=== PATIENT | female | born 1990 | race Caucasian/White ===

== ENCOUNTER 2017-10-08 19:47 | Emergency (ER) | payer SELFPAY ==
--- NOTE | 2017-10-08 20:11 | UC ---
Skin Complaint HPI - HPI Summary HPI Summary: Severe menstrual bleeding she has been using one pad an hour she reports for the past 48 hours. Today she noticed large bruises on her arms her legs and a petechial rash on both lower extremities. Patient denies any injuries, she denies domestic violence, she denies any episodes similar to this in the past - History of Current Complaint Chief Complaint: [facility] Time Seen by Provider: 10/08/17 20:03 Stated Complaint: BRUISES ON BODY/PERSONAL Hx Obtained From: Patient Hx Last Menstrual Period: now-DUB ?: No Onset/Duration: Sudden Onset, Lasting Days - 2, Still Present Timing: Constant Location: Diffuse Associated Signs & Symptoms: Positive: Bruising - Allergy/Home Medications Allergies/Adverse Reactions: Allergies Allergy/AdvReac Type Severity Reaction Status Date / Time amoxicillin Allergy Rash Verified 10/08/17 20:15 Penicillins Allergy Rash Verified 10/08/17 20:15 Home Medications: Home Medications Naproxen Sodium [Midol] 1 each PO DAILY 10/08/17 [History Confirmed 10/08/17] Review of Systems Constitutional: Negative Skin: Rash, Bruising Eyes: Negative ENT: Negative Respiratory: Negative Cardiovascular: Negative Gastrointestinal: Negative Genitourinary: Negative, Other - 48 hours of 1 pad per hour bleeding Motor: Negative Neurovascular: Negative Musculoskeletal: Negative Neurological: Other - "just does not feel right" Psychological: Negative Is Patient Immunocompromised?: No All Other Systems Reviewed And Are Negative: Yes PMH/Surg Hx/FS Hx/Imm Hx Previously Healthy: No - Family History Known Family History: Positive: Cardiac Disease, Diabetes - Social History Occupation: Employed Part-time Lives: With Family Alcohol Use: None Substance Use Type: None Smoking Status (MU): Never Smoked Tobacco Physical Exam Triage Information Reviewed: Yes Appearance: No Pain Distress, Well-Nourished, Ill-Appearing - pale Vital Signs Reviewed: Yes Eye Exam: Normal Eyes: Positive: Conjunctiva Clear ENT Exam: Normal ENT: Positive: Normal ENT inspection, Hearing grossly normal, Pharynx normal. Negative: Trismus, Muffled voice, Hoarse voice Dental Exam: Normal Neck exam: Normal Neck: Positive: Supple, Nontender, No Lymphadenopathy Respiratory Exam: Normal Respiratory: Positive: Chest non-tender, Lungs clear, Normal breath sounds, No respiratory distress, No accessory muscle use Cardiovascular Exam: Other Cardiovascular: Positive: No Murmur, Pulses Normal, Brisk Capillary Refill, Tachycardia, Other: - pale Musculoskeletal Exam: Normal Musculoskeletal: Positive: Strength Intact, ROM Intact, No Edema Neurological Exam: Normal Neurological: Positive: Alert, Muscle Tone Normal, Fatigued Psychological Exam: Normal Psychological: Positive: Normal Response To Family, Age Appropriate Behavior Skin Exam: Other Skin: Positive: Other - multiple bruised areas Course/Dx - Course Course Of Treatment: transfer patient to [facility] Emergency Department for further assessment---partner will be driving her - Diagnoses Provider Diagnoses: Dysfunctional uterine bleeding, tachycardia - Physician Notification/Consults Discussed Patient Care With: Geovany Almaguer MD Time Discussed With Above Provider: 20:30 Instructed by Provider To: Transfer Discharge - Sign-Out/Discharge Documenting (check all that apply): Discharge/Admit/Transfer - Discharge Plan Condition: Stable Disposition: HOME Discharge Disposition Comment: [facility] Emergency Department Patient Education Materials: Dysfunctional Uterine Bleeding (ED), Contusion in Adults (ED) Referrals: Care [facility] [Outside] - If Needed [facility] [place]Outside] - If Needed [facility] [Medical Doctor] - As Soon As Possible - Billing Disposition and Condition Condition: STABLE Disposition: Home
[2017-10-08 20:14] VITALS: BP 144/81
== END 2017-10-08 20:27 | disposition home or self-care (01) ==
LOC: UCCORT 19:47
DX: N93.8 Other specified abnormal uterine and vaginal bleeding (principal); R00.0 Tachycardia, unspecified; S40.022A Contusion of left upper arm, initial encounter; S40.021A Contusion of right upper arm, initial encounter; S80.12XA Contusion of left lower leg, initial encounter; S80.11XA Contusion of right lower leg, initial encounter; Z88.0 Allergy status to penicillin; X58.XXXA Exposure to other specified factors, initial encounter; Y92.9 Unspecified place or not applicable; R21 Rash and other nonspecific skin eruption
CPT/HCPCS: 99202; G0463

== ENCOUNTER 2018-09-20 20:54 | Emergency (ER) | payer BC ==
--- OUTSIDE RECORDS SUMMARY | 2018-09-20 21:03 | XMS REPORT | Continuity of Care Document ---
:1990 External Reference #:[id number] Author Name Shameka Duffy Care Team Providers Name Role Phone Elisha Carter DO Care Team Information Pvc Monitor Unavailable Magy Boggs MD Primary Care Physician Unavailable Payers Date Identification Numbers Payment Provider Subscriber Expires: 2017 Policy Number: [id number] Jacqueline Kaur PayID: [id number] [address] [address] [place] [address] Policy Number: [id number] Jacqueline Kaur PayID: [id number] [address] [address] [place] [address] Problems Active Problems Provider Date Idiopathic thrombocytopenic purpura Elisha Carter DO Onset: 10/17/2017 Vitamin D deficiency Elisha Carter DO Onset: 10/17/2017 Irregular menstruation, unspecified Elisha Carter DO Onset: 10/17/2017 Disorder of menstruation Briana Bedoya CNM Onset: 10/25/2017 Thrombocytopenic disorder Briana Bedoya CNM Onset: 10/25/2017 Contraception care Briana Bedoya CNM Onset: 12/26/2017 Vitamin B deficiency Elisha Carter DO Onset: 11/25/2017 Iron deficiency Elisha Carter DO Onset: 11/25/2017 Splenomegaly Elisha Carter DO Onset: 11/25/2017 Obesity Magy Boggs MD Onset: 03/07/2018 Family History Date Family Member(s) Observation Comments Onset: (age 28 Years) Mother Cervical Cancer Social History Type Date Description Comments Sex Unknown Marital Status Single Occupation Sk[employer] Work Status Currently Working Tobacco Use Start: Unknown Never Smoked Cigarettes Smoking Status Reviewed: 09/13/18 Never Smoked Cigarettes ETOH Use Denies alcohol use Tobacco Use Start: Unknown Patient denies history of smoking Recreational Drug Use Denies Drug Use Contraceptive Methods none # [facility] 1 Allergies, Adverse Reactions, Alerts Active Allergies Reaction Severity Comments Date Penicillin Hives 10/17/2017 Azithromycin Hives 10/17/2017 Ciprofloxacin Hives 10/17/2017 Medications Active Medications SIG Qnty Indications Ordering Provider Date Ergocalciferol 1 cap po q 3caps Elisha Carter, 08/21/2018 [id number] week DO Capsules Folic Acid 1 tabl by 30tabs Elisha Carter, 05/10/2018 1mg Tablets mouth every DO day Iron 1 tabl po 30tabs Elisha Carter, 03/13/2018 325(65Fe) mg Tablets daily with vit DO C Vitamin C 1 tabl po 30units Elisha Carter, 03/13/2018 500mg [place] daily with DO iron Sprintec 28 1 by mouth 84tabs JulianBriana, [facility] 12/26/2017 0.25-35mg-mcg every day Tablets History Medications Ergocalciferol 1 cap po q week 8caps [facility], 03/07/2018 - [id number] Capsules Elisha, DO 09/13/2018 No Active Medications Unknown 12/26/2017 - 12/26/2017 Sprintec 28 Take 1 tablet 1pack N93.9 Julianra Briana, 10/25/2017 - 0.25-35mg-mcg Tablets by mouth daily [facility] 12/26/2017 Ergocalciferol 1 cap po q week 8caps [facility], 10/17/2017 - [id number] Capsules Elisha, DO 10/25/2017 Pred[facility]one 2 tabl po q day [facility] 10/17/2017 - 2.5mg Tablets from 11/02 to 11/04 Elisha, DO 12/26/2017 1 tabl po q day from 11/05 Pantoprazole Sodium 1 by mouth Unknown - 40mg Tablets every day every 12/26/2017 DR morning Medroxyprogesterone take 1 tablet Unknown - Acetate by mouth daily 12/26/2017 10mg Tablets for 10 days with food for abnormal bleeding from the uterus Ferrous Sulfate take one tablet Unknown - 325(65Fe) mg by mouth twice 12/26/2017 Tablets a day Cephalexin 1 tab (or cap) Unknown - 500mg Tablets by mouth three 10/25/2017 times a day Medications Administered in Office Medication SIG Qnty Indications Ordering Provider Date Vitamin B12 Injection 1000 Oncology Nurse 09/07/2018 mcg/Ml Injection Vitamin B12 Injection 1000 Elisha Carter, DO 07/07/2018 mcg/Ml Injection Vitamin B12 Injection 1000 Elisha Carter, DO 05/10/2018 mcg/Ml Injection Vitamin B12 Injection 1000 Elisha Carter, DO 03/13/2018 mcg/Ml Injection Vital Signs Date Vital Result Comment 09/13/2018 8:44am BP Systolic Sitting Left Arm 118 mmHg BP Diastolic Sitting Left Arm 78 mmHg Body Temperature 98.3 F Heart Rate 88 /min Respiratory Rate 18 /min Height 70 inches 5'10" Weight 283.00 lb BMI (Body Mass Index) 40.6 kg/m2 BSA (Body Surface Area) 2.42 m2 [place] body weight in kilograms 68 kg O2 % BldC Oximetry 96 % Ra 08/21/2018 2:01pm BP Systolic 145 mmHg BP Diastolic 81 mmHg Body Temperature 98.6 F Heart Rate 91 /min Respiratory Rate 16 /min Weight 281.38 lb O2 % BldC Oximetry 97 % Pain Level 0 07/07/2018 2:43pm BP Systolic 146 mmHg BP Diastolic 80 mmHg Body Temperature 98.4 F Heart Rate 91 /min Respiratory Rate 16 /min Weight 282.12 lb O2 % BldC Oximetry 96 % Pain Level 0 06/13/2018 8:46am BP Systolic Sitting Left Arm 124 mmHg BP Diastolic Sitting Left Arm 76 mmHg Body Temperature 98.6 F Heart Rate 82 /min Respiratory Rate 16 /min Height 70 inches 5'10" Weight 280.00 lb BMI (Body Mass Index) 40.2 kg/m2 BSA (Body Surface Area) 2.41 m2 [place] body weight in kilograms 68 kg O2 % BldC Oximetry 99 % Ra 05/10/2018 3:41pm BP Systolic 150 mmHg BP Diastolic 81 mmHg Body Temperature 98.2 F Heart Rate 104 /min Respiratory Rate 18 /min Weight 279.00 lb O2 % BldC Oximetry 99 % Pain Level 0 03/13/2018 10:18am BP Systolic 131 mmHg BP Diastolic 78 mmHg Body Temperature 98.6 F Heart Rate 80 /min Respiratory Rate 16 /min Weight 273.50 lb O2 % BldC Oximetry 100 % Pain Level 0 03/07/2018 8:44am BP Systolic 132 mmHg BP Diastolic 73 mmHg Body Temperature 97.7 F Heart Rate 76 /min Respiratory Rate 18 /min Height 70.5 inches 5'10.50" Weight 275.50 lb BMI (Body Mass Index) 39.0 kg/m2 BSA (Body Surface Area) 2.40 m2 [place] body weight in kilograms 69 kg O2 % BldC Oximetry 100 % 01/27/2018 10:22am BP Systolic 133 mmHg BP Diastolic 73 mmHg Body Temperature 98.0 F Heart Rate 92 /min Weight 272.00 lb O2 % BldC Oximetry 100 % 12/26/2017 10:03am BP Systolic 119 mmHg BP Diastolic 74 mmHg Body Temperature 98.1 F Heart Rate 89 /min Respiratory Rate 18 /min Height 70 inches 5'10" Weight 276.00 lb BMI (Body Mass Index) 39.6 kg/m2 BSA (Body Surface Area) 2.39 m2 [place] body weight in kilograms 68 kg O2 % BldC Oximetry 99 % 11/25/2017 8:57am BP Systolic 122 mmHg BP Diastolic 75 mmHg Body Temperature 98.5 F Heart Rate 83 /min Weight 276.25 lb O2 % BldC Oximetry 99 % Pain Level 0 10/25/2017 9:00am BP Systolic 132 mmHg BP Diastolic 75 mmHg Body Temperature 97.8 F Heart Rate 98 /min Respiratory Rate 18 /min Height 70 inches 5'10" Weight 273.00 lb BMI (Body Mass Index) 39.2 kg/m2 BSA (Body Surface Area) 2.38 m2 [place] body weight in kilograms 68 kg O2 % BldC Oximetry 99 % 10/17/2017 12:24pm BP Systolic 126 mmHg BP Diastolic 70 mmHg Body Temperature 98.6 F Heart Rate 76 /min Respiratory Rate 16 /min Weight 274.00 lb O2 % BldC Oximetry 98 % Results Test Date Facility Test Result H/L Range Note CBC 09/11/2018 [facility] White Blood 6.7 K/uL N 3.1-10.7 1 W/Automated [address] Count Diff [place], [place] [id number] [phone] Red Blood Count 4.83 M/uL N 3.90-5.40 Hemoglobin 14.8 gm/dL N 11.6-15.8 Hematocrit 43.1 % N 36.0-46.1 Mean Cell Volume 89.2 fl N 80.9-99.0 Mean Corpuscular HGB 30.6 pg N 25.9-32.7 Mean Corpuscular HGB Conc 34.3 g/dL N 30.8-34.3 Platelet Count 248 K/uL N 155-360 Red Cell Distri Width SD 44.4 fl N 36-47 Red Cell Distri Width %CV 13.7 % N 11.7-14.4 Mean Platelet Volume 10.5 fl N 8.9-12.4 Neut% 58.4 % N 40.4-72.8 Lymph % 28.9 % N 20.0-42.0 [place] % 8.8 % N 4.3-13.2 Eo% 2.8 % N 0.0-6.6 Bas% 0.7 % N 0.0-1.1 Immature Grans 0.4 % N 0.0-5.0 NRBC % 0.0 /100WBC < 10/ 100 WBC Neut# 3.89 K/uL N 1.8-7.0 Lymph # 1.93 K/uL N 1.0-4.0 [place] # 0.59 K/uL N 0.3-0.9 Eos # 0.19 K/uL N 0.0-0.5 Baso # 0.05 K/uL N 0.0-0.1 Immature Grans Absolute 0.03 K/uL NRBC # 0.00 K/uL Vitamin B12 And 09/11/2018 [facility] Vitamin B12 657 pg/mL N 193-986 Folate [address] [place] [address] [phone] Folic Acid 19.5 ng/mL High 3.1-17.5 Comprehensive Metabolic 09/11/2018 [facility] Glucose 92 mg/dL N 74-106 Panel [address] [place] [address] [phone] BUN 12 mg/dL N 7-18 Creatinine 0.8 mg/dL N 0.6-1.3 Glom Filtration Rate, Estimate >60 mL/min >60 If >60 mL/min >60 2 BUN/Creat 15.0 ratio Sodium 138 mmol/L N 136-145 Potassium 4.2 mmol/L N 3.5-5.1 Chloride 105 mmol/L N 98-107 Carbon Dioxide 25 mmol/L N 21-32 Anion Gap 8 mEq/L N 8-16 Calcium 8.7 mg/dL N 8.5-10.1 Total Protein 7.5 g/dL N 6.4-8.2 Albumin 4.0 g/dL N 3.4-5.0 Globulin 3.5 g/dL N 1.9-4.3 Alb/Glob 1.1 ratio Bilirubin,Total 0.3 mg/dL N 0.2-1.0 Sgot/Ast 18 U/L N 15-37 SGPT/Alt 29 U/L N 12-78 Alkaline Phosphatase 56 U/L N 45-117 Laboratory 09/11/2018 [facility] Vitamin 28.8 Low 30.0-100.0 3 test finding [address] D,25-Hydroxy ng/[place] [address] [phone] CBC 08/14/2018 [facility] White Blood 7.0 K/uL N 3.1-10.7 4 W/Automated [address] [place] [address] [phone] Red Blood Count 4.84 M/uL N 3.90-5.40 Hemoglobin 14.7 gm/dL N 11.6-15.8 Hematocrit 42.6 % N 36.0-46.1 Mean Cell Volume 88.0 fl N 80.9-99.0 Mean Corpuscular HGB 30.4 pg N 25.9-32.7 Mean Corpuscular HGB Conc 34.5 g/dL High 30.8-34.3 Platelet Count 237 K/uL N 155-360 Red Cell Distri Width SD 48.5 fl High 36-47 Red Cell Distri Width %CV 15.0 % High 11.7-14.4 Mean Platelet Volume 10.9 fl N 8.9-12.4 Neut% 51.2 % N 40.4-72.8 Lymph % 38.5 % N 20.0-42.0 [place] % 7.3 % N 4.3-13.2 Eo% 2.0 % N 0.0-6.6 Bas% 0.6 % N 0.0-1.1 Immature Grans 0.4 % N 0.0-5.0 NRBC % 0.0 /100WBC < 10/ 100 WBC Neut# 3.56 K/uL N 1.8-7.0 Lymph # 2.68 K/uL N 1.0-4.0 [place] # 0.51 K/uL N 0.3-0.9 Eos # 0.14 K/uL N 0.0-0.5 Baso # 0.04 K/uL N 0.0-0.1 Immature Grans Absolute 0.03 K/uL NRBC # 0.00 K/uL Iron-Tibc-%Sat 08/14/2018 [facility] Serum Iron 60 g/dL N 50-[address] [place] [address] [phone] Total Iron Binding Capacity 365 g/dL N 250-450 Transferrin %Saturation 16 % N 12-57 Laboratory test 08/14/2018 [facility] Ferritin 84 ng/mL N 8-[address] [place], [place] [address] [phone] Vitamin B12 And 08/14/2018 [facility] Vitamin B12 390 pg/mL N 193-[address] [place] [address] [phone] Folic Acid > 20.0 ng/mL High 3.1-17.5 Laboratory 08/14/2018 [facility] Vitamin 26.7 Low 30.0-100.0 5 test finding [address] D,25-Hydroxy ng/[place] [address] [phone] TSH Reflex FT4 06/27/2018 [facility] Thyroid Stim 2.44 N 0.30-4.20 6 And/Or FT3 [address] Hormone uIU/[place] [address] [phone] Reflex add FT3? N Reflex add FT4? Y Laboratory test 06/27/2018 [facility] TSH Reflex FT4 <pending> finding [address] And/[place] FT3 [place] [address] [phone] CBC W/Automated 06/27/2018 [facility] White Blood 6.0 K/uL N 3.1-10.[address] [place] [address] [phone] Red Blood Count 5.09 M/uL N 3.90-5.40 Hemoglobin 14.5 gm/dL N 11.6-15.8 Hematocrit 42.6 % N 36.0-46.1 Mean Cell Volume 83.7 fl N 80.9-99.0 Mean Corpuscular HGB 28.5 pg N 25.9-32.7 Mean Corpuscular HGB Conc 34.0 g/dL N 30.8-34.3 Platelet Count 161 K/uL N 155-360 Red Cell Distri Width SD 53.8 fl High 36-47 Red Cell Distri Width %CV 17.9 % High 11.7-14.4 Mean Platelet Volume 11.8 fL N 8.9-12.4 Neut% 60.3 % N 40.4-72.8 Lymph % 31.0 % N 20.0-42.0 [place] % 6.5 % N 4.3-13.2 Eo% 1.5 % N 0.0-6.6 Bas% 0.7 % N 0.0-1.1 Neut# 3.62 K/uL N 1.8-7.0 Lymph # 1.86 K/uL N 1.0-4.0 [place] # 0.39 K/uL N 0.3-0.9 Eos # 0.09 K/uL N 0.0-0.5 Baso # 0.04 K/uL N 0.0-0.1 Iron-Tibc-%Sat 06/27/2018 [facility] Serum Iron 89 g/dL N 50-170 [address] [place] [address] [phone] Total Iron Binding Capacity 385 g/dL N 250-450 Transferrin %Saturation 23 % N 12-57 Reflex add FT3? N Reflex add FT4? Y Ferritin 06/27/2018 [facility] Ferritin 142 ng/mL N 8-252 [address] [place] [address] [phone] Reflex add FT3? N Reflex add FT4? Y Vitamin B12 And 06/27/2018 [facility] Vitamin B12 443 pg/mL N 193-986 Folate [address] [place] [address] [phone] Folic Acid > 20.0 ng/mL High 3.1-17.5 Reflex add FT3? N Reflex add FT4? Y Laboratory 06/27/2018 [facility] Vitamin 28.7 Low 30.0-100.0 7 test finding [address] D,25-Hydroxy ng/[place] [address] [phone] Laboratory 05/10/2018 [facility] Free T4 <pending> test finding [address] [place] [address] [phone] Thyroid Stim Hormone <pending> Vitamin D,25-Hydroxy <pending> CBC W/Automated Diff 05/10/2018 [facility] White Blood 8.4 K/uL N 3.1-10.[address] [place] [address] [phone] Red Blood Count 5.50 M/uL High 3.90-5.40 Hemoglobin 13.4 gm/dL N 11.6-15.8 Hematocrit 41.8 % N 36.0-46.1 Mean Cell Volume 76.0 fl Low 80.9-99.0 Mean Corpuscular HGB 24.4 pg Low 25.9-32.7 Mean Corpuscular HGB Conc 32.0 g/dL N 30.8-34.3 Platelet Count 153 K/uL Low 155-360 Red Cell Distri Width SD 60.8 fl High 36-47 Red Cell Distri Width %CV 22.8 % High 11.7-14.4 Mean Platelet Volume TNP fL 8.9-12.4 Neut% 63.5 % N 40.4-72.8 Lymph % 25.6 % N 20.0-42.0 [place] % 9.1 % N 4.3-13.2 Eo% 1.3 % N 0.0-6.6 Bas% 0.5 % N 0.0-1.1 Neut# 5.36 K/uL N 1.8-7.0 Lymph # 2.16 K/uL N 1.0-4.0 [place] # 0.77 K/uL N 0.3-0.9 Eos # 0.11 K/uL N 0.0-0.5 Baso # 0.04 K/uL N 0.0-0.1 Iron-Tibc-%Sat 05/10/2018 [facility] Serum Iron 43 g/dL Low 50-170 [address] [address] [phone] Total Iron Binding Capacity 475 g/dL High 250-450 Transferrin %Saturation 9 % Low 12-57 Laboratory test 05/10/2018 [facility] Ferritin 4 ng/mL Low 8-252 finding [address] [place] [address] [phone] Vitamin B12 And 05/10/2018 [facility] Vitamin B12 566 pg/mL N 193-986 Folate [address] [place] [address] [phone] Folic Acid 17.7 ng/mL High 3.1-17.5 Laboratory 05/10/2018 [facility] Vitamin 22.3 Low 30.0-100.0 9 test finding [address],25-Hydroxy ng/[place] [address] [phone] Slide Review DIFF ORDERED Differential-WBC Confirm 05/10/2018 [facility] Total Cells 100 #CELLS [address] [address] [phone] Band% 2 % N 0-8 Neutrophils% 64 % N 33-73 Lymph% 26 % N 20-42 Atypical Lymph% 1 % N 0-7 Monocyte% 5 % N 0-10 Eosinophil% 2 % N 0-5 Platelet Estimate NORMAL Anisocytosis 2+ Microcytosis 1+ Schistocytes 0-1+ Differential Comment LARGE PLATELETS <SEE NOTE> 10 Laboratory 04/17/2018 [facility] Vitamin 21.2 Low 30.0-100.0 11 test finding [address],25-Hydroxy ng/[place] [address] [phone] Slide Review (SEE NOTE) 12 Vitamin B12 And 04/17/2018 [facility] Vitamin B12 427 pg/mL N 193-986 Folate [address] [place] [address] [phone] Folic Acid 15.7 ng/mL N 3.1-17.5 Laboratory test 04/17/2018 [facility] Ferritin 6 ng/mL Low 8-252 finding [address] [place] [address] [phone] Iron-Tibc-%Sat 04/17/2018 [facility] Serum Iron 40 g/dL Low 50-[address] [place] [address] [phone] Total Iron Binding Capacity 475 g/dL High 250-450 Transferrin %Saturation 8 % Low 12-57 CBC W/Automated Diff 04/17/2018 [facility] White Blood 6.0 K/uL N 3.1-10.[address] [place] [address] [phone] Red Blood Count 5.06 M/uL N 3.90-5.40 Hemoglobin 12.2 gm/dL N 11.6-15.8 Hematocrit 38.7 % N 36.0-46.1 Mean Cell Volume 76.5 fl Low 80.9-99.0 Mean Corpuscular HGB 24.1 pg Low 25.9-32.7 Mean Corpuscular HGB Conc 31.5 g/dL N 30.8-34.3 Platelet Count 186 K/uL N 155-360 Red Cell Distri Width SD 69.1 fl High 3-47 Red Cell Distri Width %CV 25.9 % High 11.7-14.4 Mean Platelet Volume 11.4 fL N 8.9-12.4 Neut% 48.2 % N 40.4-72.8 Lymph % 39.6 % N 20.0-42.0 [place] % 8.8 % N 4.3-13.2 Eo% 2.7 % N 0.0-6.6 Bas% 0.7 % N 0.0-1.1 Neut# 2.89 K/uL N 1.8-7.0 Lymph # 2.37 K/uL N 1.0-4.0 [place] # 0.53 K/uL N 0.3-0.9 Eos # 0.16 K/uL N 0.0-0.5 Baso # 0.04 K/uL N 0.0-0.1 CBC W/Automated 02/27/2018 [facility] White Blood 6.2 K/uL N 3.1-10.7 [address] [place] [address] [phone] Red Blood Count 4.64 M/uL N 3.90-5.40 Hemoglobin 9.5 gm/dL Low 11.6-15.8 Hematocrit 32.3 % Low 36.0-46.1 Mean Cell Volume 69.6 fl Low 80.9-99.0 Mean Corpuscular HGB 20.5 pg Low 25.9-32.7 Mean Corpuscular HGB Conc 29.4 g/dL Low 30.8-34.3 Platelet Count 296 K/uL N 155-360 Red Cell Distri Width SD 46.9 fl N 3-47 Red Cell Distri Width %CV 19.3 % High 11.7-14.4 Mean Platelet Volume 11.4 fL N 8.9-12.4 Neut% 51.8 % N 40.4-72.8 Lymph % 36.5 % N 20.0-42.0 [place] % 8.8 % N 4.3-13.2 Eo% 2.4 % N 0.0-6.6 Bas% 0.5 % N 0.0-1.1 Neut# 3.19 K/uL N 1.8-7.0 Lymph # 2.25 K/uL N 1.0-4.0 [place] # 0.54 K/uL N 0.3-0.9 Eos # 0.15 K/uL N 0.0-0.5 Baso # 0.03 K/uL N 0.0-0.1 Iron-Tibc-%Sat 02/27/2018 [facility] Serum Iron 17 g/dL Low 50-170 [address] [place], [place] [address] [phone] Total Iron Binding Capacity 489 g/dL High 250-450 Transferrin %Saturation 3 % Low 12-57 Laboratory test 02/27/2018 [facility] Ferritin 2 ng/mL Low 8-252 finding [address] [place], [place] [address] [phone] Vitamin B12 And 02/27/2018 [facility] Vitamin B12 410 pg/mL N 193-986 Folate [address] [place] [address] [phone] Folic Acid 19.1 ng/mL High 3.1-17.5 Laboratory 02/27/2018 [facility] Vitamin 25.1 ng/mL Low 30.0-100.0 14 test finding [address] [facility] D,25[place] [address] [phone] Slide Review 02/27/2018 [facility] Slide Review DIFF [address] ORDERED [place] [address] [phone] Laboratory 02/27/2018 [facility] Path Review: <pending> test finding [address] [place] [address] [phone] Differential-W 02/27/2018 [facility] Total Cells 100 #CELLS BC Confirm [address] Counted [place] [address] [phone] Neutrophils% 55 % N 33-73 Lymph% 31 % N 20-42 Atypical Lymph% 1 % N 0-7 Monocyte% 8 % N 0-10 Eosinophil% 2 % N 0-5 Basophil% 3 % High 0-2 Platelet Estimate NORMAL Polychromasia 1+ Hypochromia 2+ Anisocytosis 1+ Microcytosis 2+ Ovalocytes 1+ Laboratory 01/27/2018 [facility] Vitamin 27.9 Low 30.0-100.0 15, 16 test finding [address] D,25-Hydroxy ng/mL [place] [address] [phone] CBS 01/27/2018 [facility] White Blood 6.4 K/uL N 3.1-10.7 W/Automated [address] Count Diff [place] [address] [phone] Red Blood Count 4.21 M/uL N 3.90-5.40 Hemoglobin 9.6 gm/dL Low 11.6-15.8 Hematocrit 30.9 % Low 36.0-46.1 Mean Cell Volume 73.4 fl Low 80.9-99.0 Mean Corpuscular HGB 22.8 pg Low 25.9-32.7 Mean Corpuscular HGB Conc 31.1 g/dL N 30.8-34.3 Platelet Count 300 K/uL N 155-360 Red Cell Distri Width SD 46.9 fl N 3-47 Red Cell Distri Width %CV 18.2 % High 11.7-14.4 Mean Platelet Volume 11.6 fL N 8.9-12.4 Neut% 59.7 % N 40.4-72.8 Lymph % 26.9 % N 20.0-42.0 [place] % 10.7 % N 4.3-13.2 Eo% 2.2 % N 0.0-6.6 Bas% 0.5 % N 0.0-1.1 Neut# 3.80 K/uL N 1.8-7.0 Lymph # 1.71 K/uL N 1.0-4.0 [place] # 0.68 K/uL N 0.3-0.9 Eos # 0.14 K/uL N 0.0-0.5 Baso # 0.03 K/uL N 0.0-0.1 Iron-Tibc-%Sat 01/27/2018 [facility] Serum Iron 13 g/dL Low 50-170 [address] [place], [place] [address] [phone] Total Iron Binding Capacity 477 g/dL High 250-450 Transferrin %Saturation 3 % Low 12-57 Laboratory test 01/27/2018 [facility] Ferritin 3 ng/mL Low 8-252 finding [address] [place], [place] [address] [phone] Comprehensive 01/27/2018 [facility] Glucose 111 mg/dL High 74-106 Metabolic Panel [address] [place], [place] [address] [phone] BUN 13 mg/dL N 7-18 Creatinine 0.8 mg/dL N 0.6-1.3 Glom Filtration Rate, Estimate >60 mL/min >60 If >60 mL/min >60 17 BUN/Creat 16.2 ratio Sodium 142 mmol/L N 136-145 Potassium 4.6 mmol/L N 3.5-5.1 Chloride 111 mmol/L High 98-107 Carbon Dioxide 25 mmol/L N 21-32 Anion Gap 6 mEq/L Low 8-16 Calcium 8.9 mg/dL N 8.5-10.1 Total Protein 7.0 g/dL N 6.4-8.2 Albumin 3.7 g/dL N 3.4-5.0 Globulin 3.3 g/dL N 1.9-4.3 Alb/Glob 1.1 ratio Bilirubin,Total 0.3 mg/dL N 0.2-1.0 Sgot/Ast 26 U/L N 15-37 SGPT/Alt 49 U/L N 12-78 Alkaline Phosphatase 51 U/L N 45-117 Vitamin B12 And 01/27/2018 [facility] Vitamin B12 511 pg/mL N 193-986 Folate [address] [place] [address] [phone] Folic Acid 17.7 ng/mL High 3.1-17.5 CBS W/Automated Diff 11/25/2017 [facility] White Blood 5.3 K/uL N 3.1-10.7 [address] [place] [address] [phone] Red Blood Count 4.15 M/uL N 3.90-5.40 Hemoglobin 11.5 gm/dL Low 11.6-15.8 Hematocrit 36.3 % N 36.0-46.1 Mean Cell Volume 87.5 fl N 80.9-99.0 Mean Corpuscular HGB 27.7 pg N 25.9-32.7 Mean Corpuscular HGB Conc 31.7 g/dL N 30.8-34.3 Platelet Count 254 K/uL N 155-360 Red Cell Distri Width SD 47.1 fl High 3-47 Red Cell Distri Width %CV 14.9 % High 11.7-14.4 Mean Platelet Volume 12.2 fL N 8.9-12.4 Neut% 43.0 % N 40.4-72.8 Lymph % 40.7 % N 20.0-42.0 [place] % 11.7 % N 4.3-13.2 Eo% 4.0 % N 0.0-6.6 Bas% 0.6 % N 0.0-1.1 Neut# 2.29 K/uL N 1.8-7.0 Lymph # 2.16 K/uL N 1.0-4.0 [place] # 0.62 K/uL N 0.3-0.9 Eos # 0.21 K/uL N 0.0-0.5 Baso # 0.03 K/uL N 0.0-0.1 Iron-Tibc-%Sat 11/25/2017 [facility] Serum Iron 35 g/dL Low 50-170 [address] [place] [address] [phone] Total Iron Binding Capacity 452 g/dL High 250-450 Transferrin %Saturation 8 % Low 12-57 Laboratory test finding 11/25/2017 [facility] Ferritin 6 ng/mL Low 8-252 [address] [place] [address] [phone] Comprehensive Metabolic 11/25/2017 [facility] Glucose 93 mg/dL N 74-106 Panel [address] [place] [address] [phone] BUN 9 mg/dL N 7-18 Creatinine 0.8 mg/dL N 0.6-1.3 Glom Filtration Rate, Estimate >60 mL/min >60 If >60 mL/min >60 18 BUN/Creat 11.2 ratio Sodium 142 mmol/L N 136-145 Potassium 4.0 mmol/L N 3.5-5.1 Chloride 108 mmol/L High 98-107 Carbon Dioxide 26 mmol/L N 21-32 Anion Gap 8 mEq/L N 8-16 Calcium 8.6 mg/dL N 8.5-10.1 Total Protein 7.1 g/dL N 6.4-8.2 Albumin 3.5 g/dL N 3.4-5.0 Globulin 3.6 g/dL N 1.9-4.3 Alb/Glob 1.0 ratio Bilirubin,Total 0.2 mg/dL N 0.2-1.0 Sgot/Ast 22 U/L N 15-37 SGPT/Alt 32 U/L N 12-78 Alkaline Phosphatase 49 U/L N 45-117 Vitamin B12 And 11/25/2017 [facility] Vitamin B12 432 pg/mL N 193-986 Folate [address] [place] [address] [phone] Folic Acid 18.2 ng/mL High 3.1-17.5 Laboratory 11/25/2017 [facility] Vitamin 21.0 Low 30.0-100.0 19 test finding [address] D,25-Hydroxy ng/[place] [address] [phone] CBS 11/01/2017 [facility] White Blood 4.7 K/uL N 3.1-10.7 20 W/Automated [address] [place] [address] [phone] Red Blood Count 3.66 M/uL Low 3.90-5.40 Hemoglobin 11.2 gm/dL Low 11.6-15.8 Hematocrit 35.4 % Low 36.0-46.1 Mean Cell Volume 96.7 fl N 80.9-99.0 Mean Corpuscular HGB 30.6 pg N 25.9-32.7 Mean Corpuscular HGB Conc 31.6 g/dL N 30.8-34.3 Platelet Count 139 K/uL Low 155-360 Red Cell Distri Width SD 62.7 fl High 3-47 Red Cell Distri Width %CV 18.5 % High 11.7-14.4 Mean Platelet Volume 10.8 fL N 8.9-12.4 Neut% 46.8 % N 40.4-72.8 Lymph % 35.0 % N 20.0-42.0 [place] % 9.6 % N 4.3-13.2 Eo% 7.7 % High 0.0-6.6 Bas% 0.9 % N 0.0-1.1 Neut# 2.20 K/uL N 1.8-7.0 Lymph # 1.64 K/uL N 1.0-4.0 [place] # 0.45 K/uL N 0.3-0.9 Eos # 0.36 K/uL N 0.0-0.5 Baso # 0.04 K/uL N 0.0-0.1 Reticulocyte 11/01/2017 [facility] Retic % 3.4 % High 0.5-1.8 Count,Automated [address] [place] [address] [phone] Laboratory test 11/01/2017 [facility] LDH 259 U/L High 84-[address] [place] [address] [phone] Vitamin B12 And 11/01/2017 [facility] Vitamin B12 387 N 193-[address] pg/[place] [address] [phone] Folic Acid 14.0 ng/mL N 3.1-17.5 Laboratory 11/01/2017 [facility] Vitamin 16.1 Low 30.0-100.0 21 test finding [address] D,25-Hydroxy ng/[place] [address] [phone] Slide Review (SEE NOTE) 22 CBS W/Automated 10/25/2017 [facility] White Blood 9.0 K/uL N 3.1-10.7 [address] [place] [address] [phone] Red Blood Count 3.45 M/uL Low 3.90-5.40 Hemoglobin 10.4 gm/dL Low 11.6-15.8 Hematocrit 33.2 % Low 36.0-46.1 Mean Cell Volume 96.2 fl N 80.9-99.0 Mean Corpuscular HGB 30.1 pg N 25.9-32.7 Mean Corpuscular HGB Conc 31.3 g/dL N 30.8-34.3 Platelet Count 185 K/uL N 155-360 Red Cell Distri Width SD 67.9 fl High 3-47 Red Cell Distri Width %CV 20.6 % High 11.7-14.4 Mean Platelet Volume 11.5 fL N 8.9-12.4 Neut% 69.0 % N 40.4-72.8 Lymph % 18.4 % Low 20.0-42.0 [place] % 7.3 % N 4.3-13.2 Eo% 5.0 % N 0.0-6.6 Bas% 0.3 % N 0.0-1.1 Neut# 6.19 K/uL N 1.8-7.0 Lymph # 1.65 K/uL N 1.0-4.0 [place] # 0.66 K/uL N 0.3-0.9 Eos # 0.45 K/uL N 0.0-0.5 Baso # 0.03 K/uL N 0.0-0.1 Ast-ST02 10/25/2017 [facility] Penicillin G 0.12 S [address] [place] [address] [phone] Tetracycline >=16 R Trimethoprim/Sulfamethoxazole <=10 S Ampicillin <=0.25 S Erythromycin <=0.12 S Clindamycin <=0.25 S Moxifloxacin 0.25 S Levofloxacin 1 S Ceftriaxone <=0.12 S Vancomycin 0.5 S Laboratory test 10/25/2017 [facility] LDH 269 U/L High 84-246 25 finding [address] [place] [address] [phone] Reticulocyte 10/25/2017 [facility] Retic % 7.7 % High 0.5-1.8 Count,Automated [address] [place] [address] [phone] Iron-Tibc-%Sat 10/25/2017 [facility] Serum Iron 145 N 50-[address] g/[place] [address] [phone] Total Iron Binding Capacity 335 g/dL N 250-450 Transferrin %Saturation 43 % N 12-57 Laboratory test 10/25/2017 [facility] Ferritin 66 ng/mL N 8-[address] [place] [address] [phone] Vitamin B12 And 10/25/2017 [facility] Vitamin B12 390 pg/mL N 193-[address] [place] [address] [phone] Folic Acid 17.1 ng/mL N 3.1-17.5 Laboratory 10/25/2017 [facility] Vitamin 15.4 Low 30.0-100.0 26 test finding [address] D,25-Hydroxy ng/[place] [address] [phone] Slide Review (SEE NOTE) 27 Genital Culture W/ 10/25/2017 [facility] Gram Stain GRAM STAIN 28, 29 Gram Stain [address] INDIC <[place] [address] NOTE> [phone] Gram Stain MODERATE GR POS. <SEE NOTE> 30 Gram Stain NO WHITE BLOOD C <SEE NOTE> 31 Genital Culture STREP. AGALACTIA <SEE NOTE> Abnormal 32 Quantity MOD Recommended Therapy: PENICILLIN OR AM <SEE NOTE> 33 Chlmaydia/GC/Trichomonas 10/25/2017 [facility] Trichomonas Negative Negative PCR [address] [place] [address] PCR [phone] Chlamydia trachomatis, PCR Negative Negative Neisseria gonorrhoeae, PCR Negative Negative 34 CBS W/Automated 10/17/2017 [facility] White Blood 14.9 K/uL High 3.1-10.7 [address] [place] [address] [phone] Red Blood Count 3.57 M/uL Low 3.90-5.40 Hemoglobin 10.6 gm/dL Low 11.6-15.8 Hematocrit 33.0 % Low 36.0-46.1 Mean Cell Volume 92.4 fl N 80.9-99.0 Mean Corpuscular HGB 29.7 pg N 25.9-32.7 Mean Corpuscular HGB Conc 32.1 g/dL N 30.8-34.3 Platelet Count 283 K/uL N 155-360 Red Cell Distri Width SD 49.3 fl High 3-47 Red Cell Distri Width %CV 19.9 % High 11.7-14.4 Mean Platelet Volume 10.4 fL N 8.9-12.4 Neut% 72.7 % N 40.4-72.8 Lymph % 20.6 % N 20.0-42.0 [place] % 6.0 % N 4.3-13.2 Eo% 0.3 % N 0.0-6.6 Bas% 0.4 % N 0.0-1.1 Neut# 10.83 K/uL High 1.8-7.0 Lymph # 3.07 K/uL N 1.0-4.0 [place] # 0.89 K/uL N 0.3-0.9 Eos # 0.04 K/uL N 0.0-0.5 Baso # 0.06 K/uL N 0.0-0.1 Laboratory test 10/17/2017 [facility] LDH 302 U/L High 84-246 finding [address] [place], [place] 107[address] [phone] Reticulocyte 10/17/2017 [facility] Retic % 8.9 % High 0.5-1.8 Count,Automated [address] [place], [place] [address] [phone] Iron-Tibc-%Sat 10/17/2017 [facility] Serum Iron 77 g/dL N 50-170 [address] [place], [place] [address] [phone] Total Iron Binding Capacity 333 g/dL N 250-450 Transferrin %Saturation 23 % N 12-57 Differential-WBC Confirm 10/17/2017 [facility] Total Cells 100 #CELLS [address] [place], [place] [address] [phone] Metamyelocyte% 1 % 0% Band% 3 % N 0-8 Neutrophils% 70 % N 33-73 Lymph% 18 % Low 20-42 Monocyte% 6 % N 0-10 Eosinophil% 1 % N 0-5 Basophil% 1 % N 0-2 Platelet Estimate NORMAL Polychromasia 1+ Anisocytosis 2+ Macrocytosis 0-1+ Tear Drop Cells 0-1+ Slide Review 10/17/2017 [facility] Slide Review DIFF ORDERED [address] [place] [address] [phone] Laboratory test 10/17/2017 [facility] Vitamin 14.3 ng/mL Low 30.0-[address] D,25-Hydroxy 00.0 [place] [address] [phone] Vitamin B12 And 10/17/2017 [facility] Vitamin B12 354 pg/mL N 193-[address] 6 [place], [place] [address] [phone] Folic Acid 8.7 ng/mL N 3.1-17.5 Laboratory test 10/17/2017 [facility] Ferritin 89 ng/mL N 8-252 finding [address] [place], [place] [address] [phone] HCG, Quant 10/11/2017 [facility] HCG, Quant < 1.0 mIU/mL 37, 38 [address] [place] [address] [phone] Reflex add FT3? N Reflex add FT4? Y Prolactin 10/11/2017 [facility] Prolactin 18.2 ng/mL [address] [place], [place] [address] [phone] Reflex add FT3? N Reflex add FT4? Y Laboratory test 10/11/2017 [facility] Testosterone Free 0.8 pg/mL 0.0-4.[address] [place] [address] [phone] Testosterone,Serum 16 ng/dL 8-48 TSH Reflex FT4 10/11/2017 [facility] Thyroid Stim 2.57 uIU/mL N 0.30-4.20 And/Or FT3 [address] Hormone [place], [place] [address] [phone] Reflex add FT3? N Reflex add FT4? Y Laboratory 10/10/2017 [facility] Vitamin 14.1 Low 30.0-100.0 40 test finding [address] D,25-Hydroxy ng/[place] [address] [phone] Methylmalonic Acid (S) 144 nmol/L 0-378 41 Homocyst(E)Ine, 10/10/2017 [facility] Homocyst(e)ine, 9.4 0.0-15.0 42 P/S [address] P/S umol/[place] [address] [phone] Aot Request 10/09/2017 [facility] Aot Request Test(s) [address] [place] [address] [phone] Tests to be added: Fe, TIBC, %Sat, <SEE NOTE> 44 1 E53.9 2 Note: Persistent reduction for 3 months or more in an eGFR <60 mL/min/1.73 m2 defines CKD. Patients with eGFR values >/=60 mL/min/1.73 m2 may also have CKD if evidence of persistent proteinuria is present. The original MDRD equation for estimated GFR is not valid for patients less than 18 years of age. Additional information may be found at www.kdoqi.org. 3 Vitamin D deficiency has been defined by the [employer] and an Endocrine Society practice guideline as a level of serum 25-OH vitamin D less than 20 ng/mL (1,2). The Endocrine Society went on to further define vitamin D insufficiency as a level between 21 and 29 ng/mL (2). 1. IOM ([employer]). 2010. Dietary reference intakes for calcium and D. [place]: The National Academies Press. 2. Ange MF, Jasmin NC, Barrera MESA, et al. Evaluation, treatment, and prevention of vitamin D deficiency: an Endocrine Society clinical practice guideline. JCEM. 2010; 96(7):1911-30. Performed at: RN - [facility] [address] [id number] Provider Relations Advocate: Dennise Noble MD, Phone: [phone] 4 E61.1,E53.9,N93.9 E61.1 E53.9 N93.9 5 Vitamin D deficiency has been defined by the [employer] and an Endocrine Society practice guideline as a level of serum 25-OH vitamin D less than 20 ng/mL (1,2). The Endocrine Society went on to further define vitamin D insufficiency as a level between 21 and 29 ng/mL (2). 1. IOM ([place]). 2010. Dietary reference intakes for calcium and D. [place]: The National Academies Press. 2. Jasmin House Bischoff-Ferrari HA et al. Evaluation, treatment, and prevention of vitamin D deficiency: an Endocrine Society clinical practice guideline. JCEM. 2010; 96(7):1911-30. Performed at: [address] [id number] Provider Relations Advocate: Dennise Noble MD, Phone: [phone] 6 E61.1 E53.9 N93.9 D69.3 7 Vitamin D deficiency has been defined by the [employer] and an Endocrine Society practice guideline as a level of serum 25-OH vitamin D less than 20 ng/mL (1,2). The Endocrine Society went on to further define vitamin D insufficiency as a level between 21 and 29 ng/mL (2). 1. IOM ([place]). 2010. Dietary reference intakes for calcium and D. [place]: The National Academies Press. 2. Jasmin House Bischoff-Ferrari HA, et al. Evaluation, treatment, and prevention of vitamin D deficiency: an Endocrine Society clinical practice guideline. JCEM. 2010; 96(7):1911-. Performed at: [address] [id number] Provider Relations Advocate: Dennise Noble MD, Phone: [phone] E61.1 E53.9 N93.9 9 Vitamin D deficiency has been defined by the [employer] and an Endocrine Society practice guideline as a level of serum 25-OH vitamin D less than 20 ng/mL (1,2). The Endocrine Society went on to further define vitamin D insufficiency as a level between 21 and 29 ng/mL (2). 1. IOM ([employer]). 2010. Dietary reference intakes for calcium and D. [place]: The National Academies Press. 2. Jasmin House Bischoff-Ferrari HA et al. Evaluation, treatment, and prevention of vitamin D deficiency: an Endocrine Society clinical practice guideline. JCEM. 2010; 96(7):1911-30. Performed at: [address] [id number] Provider Relations Advocate: Dennise Noble MD, Phone: [phone] LARGE PLATELETS PRESENT. 11 Vitamin D deficiency has been defined by the [employer] and an Endocrine Society practice guideline as a level of serum 25-OH vitamin D less than 20 ng/mL (1,2). The Endocrine Society went on to further define vitamin D insufficiency as a level between 21 and 29 ng/mL (2). 1. IOM ([employer]). 2010. Dietary reference intakes for calcium and D. [place]: The National Academies Press. 2. Jasmin House, Barrera MESA, et al. Evaluation, treatment, and prevention of vitamin D deficiency: an Endocrine Society clinical practice guideline. JCEM. 2010; 96(7):191-. Performed at: [address] [id number] Provider Relations Advocate: Dennise Noble MD, Phone: [phone] Instrument flagged sample for slide review. Less than 10% Bands seen, no other immature WBC's seen. RBC morphology essentially normal. Platelet estimate=NORMAL 13 E61.1,E53.9,N93.9 14 Vitamin D deficiency has been defined by the [employer] and an Endocrine Society practice guideline as a level of serum 25-OH vitamin D less than 20 ng/mL (1,2). The Endocrine Society went on to further define vitamin D insufficiency as a level between 21 and 29 ng/mL (2). 1. IOM ([employer]). 2010. Dietary reference intakes for calcium and D. [place]: The National Academies Press. 2. Jasmin House, Barrera MESA, et al. Evaluation, treatment, and prevention of vitamin D deficiency: an Endocrine Society clinical practice guideline. JCEM. 2010; 96(7):1911-30. Performed at: [address] [id number] Provider Relations Advocate: Dennise Noble MD, Phone: [phone] 15 E53.9,E55.9,E61.1 16 Vitamin D deficiency has been defined by the [employer] and an Endocrine Society practice guideline as a level of serum 25-OH vitamin D less than 20 ng/mL (1,2). The Endocrine Society went on to further define vitamin D insufficiency as a level between 21 and 29 ng/mL (2). 1. IOM ([place]). 2010. Dietary reference intakes for calcium and D. [place]: The National Academies Press. 2. Jasmin oHuse, Barrera MESA, et al. Evaluation, treatment, and prevention of vitamin D deficiency: an Endocrine Society clinical practice guideline. JCEM. 2010; 96(7):1911-30. Performed at: - [facility] [id number] Provider Relations Advocate: Dennise Noble MD, Phone: [phone] 17 Note: Persistent reduction for 3 months or more in an eGFR <60 mL/min/1.73 m2 defines CKD. Patients with eGFR values >/=60 mL/min/1.73 m2 may also have CKD if evidence of persistent proteinuria is present. The original MDRD equation for estimated GFR is not valid for patients less than 18 years of age. Additional information may be found at www.kdoqi.org. 18 Note: Persistent reduction for 3 months or more in an eGFR <60 mL/min/1.73 m2 defines CKD. Patients with eGFR values >/=60 mL/min/1.73 m2 may also have CKD if evidence of persistent proteinuria is present. The original MDRD equation for estimated GFR is not valid for patients less than 18 years of age. Additional information may be found at www.kdoqi.org. 19 Vitamin D deficiency has been defined by the [employer] and an Endocrine Society practice guideline as a level of serum 25-OH vitamin D less than 20 ng/mL (1,2). The Endocrine Society went on to further define vitamin D insufficiency as a level between 21 and 29 ng/mL (2). 1. IOM ([place]). 2010. Dietary reference intakes for calcium and D. [place]: The National Academies Press. 2. Jasmin House, Barrera MESA, et al. Evaluation, treatment, and prevention of vitamin D deficiency: an Endocrine Society clinical practice guideline. JCEM. 2010; 96(7):1911-30. Performed at: - [facility] [address] [id number] Provider Relations Advocate: Dennise Noble MD, Phone: [phone] 20 N93,D69.6,E55.9 21 Vitamin D deficiency has been defined by the [employer] and an Endocrine Society practice guideline as a level of serum 25-OH vitamin D less than 20 ng/mL (1,2). The Endocrine Society went on to further define vitamin D insufficiency as a level between 21 and 29 ng/mL (2). 1. IOM ([place]). 2010. Dietary reference intakes for calcium and D. [place]: The National Academies Press. 2. Jasmin House, Barrera MESA, et al. Evaluation, treatment, and prevention of vitamin D deficiency: an Endocrine Society clinical practice guideline. JCEM. 2010; 96(7):1911-30. Performed at: - [facility] [address] [id number] Provider Relations Advocate: Dennise Noble MD, Phone: [phone] Instrument flagged sample for slide review. Less than 10% Bands seen, no other immature WBC's seen. RBC morphology essentially normal. Platelet estimate=SLIGHT DECREASE 23 E53.9 E55.9 E61.1 E53.9 E55.9 E61.1` N93.9 24 E53.9 E55.9 E61.1` N93.9 25 E53.9 E55.9 E61.1 E53.9 E55.9 E61.1` N93.9 26 Vitamin D deficiency has been defined by the [employer] and an Endocrine Society practice guideline as a level of serum 25-OH vitamin D less than 20 ng/mL (1,2). The Endocrine Society went on to further define vitamin D insufficiency as a level between 21 and 29 ng/mL (2). 1. IOM ([place]). 2010. Dietary reference intakes for calcium and D. [place]: The National Academies Press. 2. Jasmin House, Barrera MESA, et al. Evaluation, treatment, and prevention of vitamin D deficiency: an Endocrine Society clinical practice guideline. JCEM. 2010; 96(7):1911-30. Performed at: RN - [facility] [address] [id number] Provider Relations Advocate: Dennise Noble MD, Phone: [phone] Instrument flagged sample for slide review. Less than 10% Bands seen, no other immature WBC's seen. RBC morphology essentially normal. Platelet estimate=NORMAL 28 E53.9 E55.9 E61.1` N93.9 29 GRAM STAIN INDICATES NORMAL GENITAL SHILA 30 MODERATE GR POS. BACILLI SUGGESTIVE OF LACTOBACILLUS SP. 31 NO WHITE BLOOD CELLS 32 STREP. AGALACTIAE (BETA GRP B) 33 PENICILLIN OR AMPICILLIN. 34 A negative result for either C. trachomatis and/or N. gonorrhoeae does not preclued an infection because results are dependent on adequate specimen collection, absence of inhibitors, and sufficient DNA to be detected. 35 E53.9,E55.9,E61.1 36 Vitamin D deficiency has been defined by the [employer] and an Endocrine Society practice guideline as a level of serum 25-OH vitamin D less than 20 ng/mL (1,2). The Endocrine Society went on to further define vitamin D insufficiency as a level between 21 and 29 ng/mL (2). 1. IOM ([place]). 2010. Dietary reference intakes for calcium and D. [place]: The National Academies Press. 2. Ange MF, Jasmin NC, Barrera MESA, et al. Evaluation, treatment, and prevention of vitamin D deficiency: an Endocrine Society clinical practice guideline. JCEM. 2010; 96(7):1911-30. Performed at: - [facility] [address] [id number] Provider Relations Advocate: Dennise Noble MD, Phone: [phone] ACUTE ITP 38 Approximate Gestational Age and Total BHCG Range: 0.2 - 1 Week........................5-50 mIU/mL 1 - 2 Weeks.....................50-500 mIU/mL 2 - 3 Weeks..................100-5,000 mIU/mL 3 - 4 Weeks.................500-10,000 mIU/mL 4 - 5 Weeks...............1,000-50,000 mIU/mL 5 - 6 Weeks.............10,000-100,000 mIU/mL 6 - 8 Weeks.............15,000-200,000 mIU/mL 2 - 3 Months............10,000-100,000 mIU/mL 39 Non- ..... 2.2-30.3 ng/mL ......... 8.1-347.6 ng/mL Post-Menopausal .. 0.7-31.5 ng/mL 40 Vitamin D deficiency has been defined by the [employer] and an Endocrine Society practice guideline as a level of serum 25-OH vitamin D less than 20 ng/mL (1,2). The Endocrine Society went on to further define vitamin D insufficiency as a level between 21 and 29 ng/mL (2). 1. IOM ([place] [employer]). 2010. Dietary reference intakes for calcium and D. [place]: The National Academies Press. 2. Ange MF, Jasmin NC, Barrera MESA, et al. Evaluation, treatment, and prevention of vitamin D deficiency: an Endocrine Society clinical practice guideline. JCEM. 2010; 96(7):1911-30. Performed at: [address] [id number] Provider Relations Advocate: Dennise Noble MD, Phone: [phone] Disclaimer: This test was developed and its performance characteristics determined by [employer]. It has not been cleared or approved by the Food and Drug Administration. Performed at: [address] [id number] Provider Relations Advocate: Dennise Noble MD, Phone: [phone] Performed at: [address] [id number] Provider Relations Advocate: Dennise Noble MD, Phone: [phone] Tests: Fe, TIBC, %Sat, Ferritin and Vit B12 Instructions: 44 Fe, TIBC, %Sat, Ferritin and Vit B12 Procedures Date Code Description Status 09/07/2018 19423 Theraputic Or Diagnostic Injection Completed 07/07/2018 [id number] Theraputic Or Diagnostic Injection Completed 05/10/2018 15376 Theraputic Or Diagnostic Injection Completed 03/13/2018 [id number] Theraputic Or Diagnostic Injection Completed 11/25/2017 31706 Theraputic Or Diagnostic Injection Completed Encounters Type Date Location Provider Dx Diagnosis Office Visit 08/21/2018 Oncology Office Elisha Carter, E53.9 Vitamin B 2:00p DO deficiency, unspecified E61.1 Iron deficiency E55.9 Vitamin D deficiency, unspecified Office Visit 07/07/2018 2:45p Oncology Office Emma E61.1 Iron deficiency Elisha DO E53.9 Vitamin B deficiency, unspecified E55.9 Vitamin D deficiency, unspecified Office Visit 06/13/2018 8:30a Primary Care Raeann Alamo, N93.9 Abnormal uterine Office MS, [employer]OE DES[employer]ER-C, CNM and vaginal bleeding, unspecified D69.3 Immune thrombocytopenic purpura E61.1 Iron deficiency E55.9 Vitamin D deficiency, unspecified E53.9 Vitamin B deficiency, unspecified R16.1 Splenomegaly, not elsewhere classified Z30.9 Encounter for contraceptive management, unspecified Office Visit 05/10/2018 3:15p Oncology Office Emma, E61.1 Iron deficiency Elisha DO E55.9 Vitamin D deficiency, unspecified E53.9 Vitamin B deficiency, unspecified D69.3 Immune thrombocytopenic purpura Office Visit 03/13/2018 10:00a Oncology Office Emma, E61.1 Iron deficiency Elisha DO E53.9 Vitamin B deficiency, unspecified E55.9 Vitamin D deficiency, unspecified Office Visit 02/27/2018 Oncology Emma D69.3 Immune 1:00p Office DO Elisha thrombocytopenic purpura E61.1 Iron deficiency E55.9 Vitamin D deficiency, unspecified E53.9 Vitamin B deficiency, unspecified Office Visit 01/27/2018 10:00a Oncology Office Emma E61.1 Iron deficiency Elisha DO E53.9 Vitamin B deficiency, unspecified E55.9 Vitamin D deficiency, unspecified Office Visit 12/26/2017 10:00a [facility] JulianBriana gonzalez, Z30.9 Encounter for [facility] CNM contraceptive management, unspecified Office Visit 11/25/2017 9:00a Oncology Office Emma E53.9 Vitamin B DO Elisha deficiency, unspecified E61.1 Iron deficiency R16.1 Splenomegaly, not elsewhere classified E55.9 Vitamin D deficiency, unspecified Office Visit 10/25/2017 9:00a [facility] AurelianoBriana, N93.9 Abnormal uterine [facility] CNM and vaginal bleeding, unspecified D69.6 Thrombocytopenia, unspecified Office Visit 10/17/2017 Oncology Emma, D69.3 Immune 12:00p Office DO Elisha thrombocytopenic purpura D69.3 Immune thrombocytopenic purpura E55.9 Vitamin D deficiency, unspecified E55.9 Vitamin D deficiency, unspecified N92.6 Irregular menstruation, unspecified Plan of Treatment Future Appointment(s):03/07/2019 8:30 am - Raeann Alamo MS, UGO-C, CNM at Primary Care Rqumor8409/26/2018 8:15 am - Oncology Nurse at Oncology Yxcshc5006/2018 10:00 am - Elisha Carter DO at Oncology Vqusru4609/13/2018 - Raeann Alamo MS, SONYAC, CNME55.9 Vitamin D deficiency, unspecifiedNew Labs: Vitamin D,25-Hydroxy, Scheduled: 03/02/19Comments:-- Vitamin D level: 28.8-- Take high dose vitamin D, as ordered. When complete, take Vitamin D3 gel capsules 2000 IU QDAYN93.9 Abnormal uterine and vaginal bleeding, unspecifiedNew Labs:CBC W/Automated Diff, Scheduled: 03/02/19Comprehensive Metabolic Panel, Scheduled: 03/02/19Comments:--Better with OC and platelet function [id number] Immune thrombocytopenic purpuraComments:--Follow with Dr Carter. Platelet count normalized, ITP [id number] Encounter for contraceptive management, unspecifiedComments:--Reviewed S/S blood edmcqZ91.09 Other obesity due to excess caloriesComments:--Discussed diet and fupdgshnI15.9 Unspecified skin changesComments:--C/W flea bites--Discussed measures to rid house, pets of fleasAllFollow up:--Return to office in 6 months. Please get fasting labs 1 week prior to office visit.
[2018-09-20 21:10] VITALS: BP 129/72
[2018-09-20] MEDS ORDERED: Neomyc/Polym/HC 1% OTIC SUSP* **OTIC RIGHT EAR ONE (21:20)
[2018-09-20] MEDS ORDERED: DOXYcycline CAP(*) 100 MG PO ONE (21:21)
--- NOTE | 2018-09-20 21:24 | UC ---
Ear Complaint HPI - HPI Summary HPI Summary: 28-year-old female 28-year-old female comes in with a chief complaint of right ear pain and decreased hearing. Been going on about 3 days. Has had some runny nose. No recent fevers. Patient's had surgery in the left ear so has decreased hearing in that ear. The right ear is her good ear. - History of Current Complaint Chief Complaint: UCEar Stated Complaint: RIGHT EAR PAIN Time Seen by Provider: 09/20/18 21:12 Hx Last Menstrual Period: 08/24/18 Pain Intensity: 3 - Allergies/Home Medications Allergies/Adverse Reactions: Allergies Allergy/AdvReac Type Severity Reaction Status Date / Time amoxicillin Allergy Rash Verified 09/20/18 21:11 Penicillins Allergy Rash Verified 09/20/18 21:11 Home Medications: Home Medications Ascorbic Acid TAB* [Vitamin C TAB*] 500 mg PO DAILY 09/20/18 [History Confirmed 09/20/18] Folic Acid TAB* [Folvite TAB*] 1 mg PO DAILY 09/20/18 [History Confirmed ] Iron,Carbonyl [Iron Chews] 15 mg PO 09/20/18 [History] Oral Contraceptives DAILY 09/20/18 [History] PMH/Surg Hx/FS Hx/Imm Hx Previously Healthy: Yes - LEFT EAR POOR HEARING - Surgical History Surgical History: Yes Surgery Procedure, Year, and Place: TUBES IN EARS. TONSILLECTOMY - Family History Known Family History: Positive: Cardiac Disease, Diabetes - Social History Alcohol Use: None Substance Use Type: None Smoking Status (MU): Never Smoked Tobacco Review of Systems All Other Systems Reviewed And Are Negative: Yes Constitutional: Positive: Negative Skin: Positive: Negative Eyes: Positive: Negative ENT: Positive: Ear Ache, Nasal Discharge Respiratory: Positive: Negative Cardiovascular: Positive: Negative Gastrointestinal: Positive: Negative Motor: Positive: Negative Neurovascular: Positive: Negative Musculoskeletal: Positive: Negative Neurological: Positive: Negative Psychological: Positive: Negative Is Patient Immunocompromised?: No Physical Exam Triage Information Reviewed: Yes Appearance: Well-Appearing, No Pain Distress, Well-Nourished, Other: - DECREASED HEARING Vital Signs: Initial Vital Signs Temp 98.9 F 09/20/18 21:06 Pulse 82 09/20/18 21:06 Resp 16 09/20/18 21:06 BP 129/72 09/20/18 21:06 Pulse Ox 100 09/20/18 21:06 Vital Signs Reviewed: Yes Eye Exam: Normal Eyes: Positive: Conjunctiva Clear ENT: Positive: Pharynx normal, TM dull - LEFT, Other - RIGHT TM 90% OBSCURED BY IMPACTED CERUMEN. TM IS RED. CANAL WITH DEBRIS. Neck: Positive: Supple Respiratory: Positive: No respiratory distress Musculoskeletal Exam: Normal Musculoskeletal: Positive: Strength Intact, ROM Intact Neurological Exam: Normal Neurological: Positive: Alert, Muscle Tone Normal Psychological Exam: Normal Psychological: Positive: Age Appropriate Behavior Skin Exam: Normal Ear Complaint Course/Dx - Course Course Of Treatment: The right TM is almost completely obscured by impacted cerumen. Due to the redness we'll treat for otitis media. Due to the ear canal debris treat for otitis externa also. I discussed flushing the cerumen. Patient declined getting the cerumen flushed. She tells me her primary care physician has recommended that the patient go to ENT for cerumen cleaning. With the decreased hearing the left here and this being her greater it is essential that the patient follow up with ENT. I recommended follow-up with ENT and we gave her names for both the [facility] Dr. Li and also the [facility] [facility] group. - Differential Dx/Diagnosis Provider Diagnosis: External otitis of right ear, Otitis media, right, Impacted cerumen of right ear Discharge - Sign-Out/Discharge Documenting (check all that apply): Patient Departure All imaging exams completed and their final reports reviewed: No Studies - Discharge Plan Condition: Stable Disposition: HOME Prescriptions: DOXYcycline CAP(*) [DOXYcycline 100MG CAP(*)] 100 mg PO BID #[id number] cap Patient Education Materials: Otitis Externa (ED), Cerumen Impaction (ED), Ear Infection (ED) Referrals: Kee Li MD [Medical Doctor] - Raghavendra Aguilar MD [Medical Doctor] - Additional Instructions: FOLLOW UP WITH DR LI, ENT. USE OVER THE COUNTER EAR WAX DROPS. GET RECHECKED SOONER IF YOUR CONDITION WORSENS OR ANY QUESTIONS OR CONCERNS. - Billing Disposition and Condition Condition: STABLE Disposition: Home
== END 2018-09-20 21:43 | disposition home or self-care (01) ==
LOC: UCCORT 20:54
DX: H66.91 Otitis media, unspecified, right ear (principal); H61.21 Impacted cerumen, right ear; H60.91 Unspecified otitis externa, right ear; Z88.0 Allergy status to penicillin
CPT/HCPCS: 99212; A9270-GY; G0463